=== PATIENT | female | born 1935 | race Caucasian/White ===

== ENCOUNTER → 2016-10-01 | Outpatient (CLI) | payer OTHER ==
[~2016-10-01] VITALS: Ht 167.6 cm; Wt 70.8 kg
[~2016-10-01] MED LIST: ANTIVERT 25MG T25 MG PO; BACTROBAN OINT22 GM; CARDIZEM CD180 MG PO; CEFTIN500 MG PO; CLARITIN10 MG PO; DALIRESP500 MCG PO; DULOXETINE HCL60 MG PO; ELIQUIS5 MG PO; FLONASE 0.05% N16 GM; IBUPROFEN600 MG PO; LEVAQUIN500 MG PO; LEVOTHYROXINE200 MC1 PO; LIORESAL TAB 1010 MG PO; LOPRESSOR 25 MG25 MG PO; MAGOX 400400 MG PO; MEDROL DOSEPAK 24 MG PO; NORVASC 5 MG TAB5 MG PO; OLANZAPINE2.5 MG PO; PAIN RELIEF650 MG PO; PRILOSEC OTC20 MG PO; PRIMIDONE50 MG PO; ROBITUSSIN DM473 ML PO; SINGULAIR10 MG PO; SPIRONOLACTONE50 MG PO; SYMBICORT 16010.2 GM INH; TRAZODONE HCL50 MG PO; TUDORZA PRESS400 MCG INH; VENTOLIN HFA 66.7 GM INH; XANAX0.5 MG PO; ZYRTEC10 MG PO
== END ==
LOC: OPSV 11:30
DX: M81.0 Age-related osteoporosis without current pathological fracture (principal)
CPT/HCPCS: 96372

== ENCOUNTER → 2016-11-06 | Outpatient (CLI) | payer OTHER ==
[2016-11-06 12:21] LABS: HEMOGLOBIN 11.4 gm/dl (12.3-15.3); RED BLOOD COUNT 3.93 M/UL (4.00-5.10); WHITE BLOOD COUNT 10.8 K/UL (4.5-11.0)
== END ==
LOC: CT 11:19
PROVIDERS: Emergency Medicine
DX: R10.84 Generalized abdominal pain (principal); N20.0 Calculus of kidney; I70.90 Unspecified atherosclerosis
CPT/HCPCS: 36415; 80053; 82150; 83690; 85027

== ENCOUNTER 2017-01-27 11:29 | Observation (INO) | payer OTHER ==
[~2017-01-27] VITALS: Ht 167.6 cm; Wt 79.8 kg
[~2017-01-27 11:29] MED LIST changes: -ANTIVERT 25MG T25 MG PO; -CARDIZEM CD180 MG PO; -ELIQUIS5 MG PO; -MAGOX 400400 MG PO; -PRILOSEC OTC20 MG PO; -SINGULAIR10 MG PO; -SPIRONOLACTONE50 MG PO; -TRAZODONE HCL50 MG PO
[2017-01-27 12:53] LABS: HEMOGLOBIN 10.9 gm/dl (12.3-15.3); RED BLOOD COUNT 3.81 M/UL (4.00-5.10); WHITE BLOOD COUNT 5.8 K/UL (4.5-11.0)
[2017-01-27 13:17] LABS: BUN/CREATININE RATIO 24 (0-10)
[2017-01-28] MEDS ORDERED: TRAZODONE HCL50 MG PO (01:58)
[2017-01-28] MEDS ORDERED: MAGOX 400400 MG PO (01:59)
[2017-01-28] MEDS ORDERED: CARDIZEM CD180 MG PO (01:59)
[2017-01-28] MEDS ORDERED: ELIQUIS5 MG PO (01:59)
[2017-01-28] MEDS ORDERED: PRILOSEC OTC20 MG PO (02:00)
[2017-01-28] MEDS ORDERED: SINGULAIR10 MG PO (02:00)
[2017-01-28] MEDS ORDERED: SPIRONOLACTONE50 MG PO (02:01)
[2017-01-28 02:38] LABS: HEMOGLOBIN 10.3 gm/dl (12.3-15.3); RED BLOOD COUNT 3.56 M/UL (4.00-5.10)
[2017-01-29 05:51] LABS: BUN/CREATININE RATIO 18 (0-10)
[2017-01-30] MEDS ORDERED: ANTIVERT 25MG T25 MG PO (11:22)
== END 2017-01-30 12:56 | disposition home or self-care (01) ==
LOC: ER1 11:29 → ZEROF 13:30 → M/S 13:30
PROVIDERS: Emergency Medicine; ADMIT Emergency Medicine
DX: R42 Dizziness and giddiness (principal); I95.1 Orthostatic hypotension; J44.9 Chronic obstructive pulmonary disease, unspecified; I10 Essential (primary) hypertension; E03.9 Hypothyroidism, unspecified; G89.29 Other chronic pain; M54.5 Low back pain; M81.0 Age-related osteoporosis without current pathological fracture; M19.012 Primary osteoarthritis, left shoulder; M19.011 Primary osteoarthritis, right shoulder; Z87.442 Personal history of urinary calculi; Z87.891 Personal history of nicotine dependence; Z88.6 Allergy status to analgesic agent; Z88.8 Allergy status to other drugs, medicaments and biological substances; Z90.49 Acquired absence of other specified parts of digestive tract
CPT/HCPCS: ECHO; 36415; 70450; 70544; 70551; 71010; 80048; 80053; 82550; 82553; 83874; 84484; 85025; 93005; 93306; 93880; 94640; 94664; 97116; 97530; 99285; G0378; J7030